=== PATIENT | male | born 1955 | race Caucasian/White ===

== ENCOUNTER 2016-12-14 07:12 | Inpatient (IN) | payer BC ==
[2016-11-24 10:53] VITALS: BMI 35.0
--- NOTE | 2016-11-24 11:30 | PAT Medication Instructions ---
Service Date Nov 24, 2016. Current Home Medication List Acetaminophen Tab (Tylenol), 650 MG PO Q6 PRN for Pain Ibuprofen (Advil), 400-600 MG PO Q6H PRN for Pain Oxycodone/Acetaminophen 5MG/325MG (Percocet 5MG/325MG), 1-2 TABLETS PO Q6H PRN for Pain Medication Instructions For Your Scheduled Surgery - Hold the following medications 10 days prior to surgery per surgeon instructions: Ibuprofen (Advil), 400-600 MG PO Q6H PRN for Pain - Take the following medications the morning of surgery with a sip of water: Oxycodone/Acetaminophen 5MG/325MG (Percocet 5MG/325MG), 1-2 TABLETS PO Q6H PRN for Pain (can take up to four hours prior to surgery if needed) Acetaminophen Tab (Tylenol), 650 MG PO Q6 PRN for Pain - Take the following medications as scheduled the night before surgery: Oxycodone/Acetaminophen 5MG/325MG (Percocet 5MG/325MG), 1-2 TABLETS PO Q6H PRN for Pain Acetaminophen Tab (Tylenol), 650 MG PO Q6 PRN for Pain If you have any questions please call us at [phone] or [phone] ( Caitlin) or [phone]
--- NOTE | 2016-11-24 12:07 | DIAGNOSTIC IMAGING REPORT ---
CHEST PREADMISSION(PA/LAT) CLINICAL HISTORY: Preoperative chest COMPARISON STUDY: No previous studies for comparison. FINDINGS: The cardiac and mediastinal contours are normal. There is no evidence of focal pulmonary consolidation. There is no evidence of failure. No pleural effusions are visualized.[ IMPRESSION: No active disease in the chest. Electronically signed by: Randy Abel M.D. 11/24/2016 12:06 PM Dictated Date/Time: 11/24/2016 12:06 PM
[2016-11-24 12:08] LABS: BASO % 0.5 %; BASO ABS # 0.03 K/uL (0-0.2); COMPLETE YES; EOS % 0.7 %; HEMATOCRIT 42.3 % (42-52); IG% 0.2 %; LYMPH % 20.9 %; LYMPH ABS # 1.25 K/uL (1.2-3.4); MEAN CELL VOLUME 87.9 fL (80-100); MEAN CORPUSCULAR HGB CONC 35.2 g/dl (32-36); MEAN PLATELET VOLUME 12.4 fL (7.4-10.4); NEUT % 71.7 %; PLATELET COUNT 155 K/uL (130-400); RED BLOOD COUNT 4.81 M/uL (4.7-6.1); WHITE BLOOD COUNT 5.99 K/uL (4.8-10.8)
[2016-11-24 12:09] LABS: URINE APPEARANCE CLEAR (CLEAR); URINE BILIRUBIN NEG (NEG); URINE COLOR YELLOW; URINE NITRITE NEG (NEG); URINE PH 6.5 (4.5-7.5); UROBILINOGEN NEG (NEG)
[2016-11-24 12:10] LABS: MANUAL MICROSCOPIC REQUIRED? NO; REVIEW REQ? NO
[2016-11-24 12:21] LABS: PARTIAL THROMBOPLASTIN RATIO 1.2; PROTHROMBIN TIME (PATIENT) 10.8 SECONDS (9.0-12.0)
[2016-11-24 12:55] LABS: BUN/CREATININE RATIO 13.7 (10-20); CALCIUM 9.4 mg/dl (8.5-10.1); POTASSIUM 4.3 mmol/L (3.5-5.1)
[2016-12-14] VITALS (8 sets, daily range): BP systolic 128–192; BP diastolic 72–96; PULSE 75–93; TEMP 36.4–36.7; O2SAT 94–97; Ht 188 cm; Wt 122.9 kg
[~2016-12-14] VITALS: Ht 188 cm; Wt 122.9 kg
[~2016-12-14 07:12] MED LIST: ACET325T96 PO; CEFAZOLIN 3000 MG/65 ML D5W IV SCH; IBUP-1050 PO; LACTATED RINGER'S 1000ML 1,000 ML IV SCH; OXYC-57 PO
[2016-12-14] MEDS ORDERED: ONDANSETRON INJ 2 MG/ML 2 ML VIAL IV PRN ×2 (07:30→11:45)
[2016-12-14] MEDS ORDERED: HYDROmorphone INJ 1 MG/ML SYR IV PRN ×2 (07:30→11:45)
[2016-12-14] MEDS ORDERED: ATROPINE SULFATE 0.1 MG/ML 5ML SYR IV PRN (07:30)
[2016-12-14] MEDS ORDERED: EpHEDrine SULFATE INJ 50 MG/ML AMP IV PRN (07:30)
[2016-12-14] MEDS ORDERED: FENTANYL CITRATE INJ 50 MCG/1 ML 2 ML VIAL ONE (08:45)
[2016-12-14] MEDS ORDERED: HYDROmorphone INJ 2 MG/ML SYR/VIAL ONE (08:45)
[2016-12-14] MEDS ORDERED: MIDAZOLAM HCL 1 MG/ML 2ML VIAL ONE (08:45)
[2016-12-14] MEDS ORDERED: CEFAZOLIN IV 2,000 MG/60 ML D5W IV ONE (09:16)
--- NOTE | 2016-12-14 09:17 | History and Physical ---
History & Physical Date Dec 14, 2016. Chief Complaint LBP and LEFt leg pain/numbness History of Present Illness The patient is a 61 year old male with complaints of above who failed outpatient management including QUINTON's. He is not working due to pain. It follows a radicular pattern. He has subjective sensory loss, worse with standing/walking in left. no R LE symptoms. no incontinecne. MRI shows severe stenosis L3-4, L4-5 and L side L5-S1 HNP. Past Medical/Surgical History nl stress test 2013 hx LBP OA cataract surgery knee surgery Additional History Hepatic Disease: No Endocrine Disorder: No Kidney Disease: No Hypertension: No Heart Disease: No Bleeding Tendencies: No Infectious Diseases: No Allergies Coded Allergies: No Known Allergies (Unverified , 12/14/16) Home Medications Scheduled PRN Acetaminophen Tab (Tylenol), 650 MG PO Q6 PRN for Pain Ibuprofen (Advil), 400-600 MG PO Q6H PRN for Pain Oxycodone/Acetaminophen 5MG/325MG (Percocet 5MG/325MG), 1-2 TABLETS PO Q6H PRN for Pain Physical Examination Skin: warm/dry Eyes: normal inspection Head: normocephalic, atraumatic Neck: supple, trachea midline Respiratory/Chest: lungs clear, no respiratory distress Cardiovascular: regular rate, rhythm Abdomen / GI: non tender Back: normal inspection Extremities: normal inspection, normal range of motion Neurologic/Psych: no motor/sensory deficits (sensory disturbance lateral L leg , pos SLR left), alert, normal reflexes, oriented x 3 Diagnosis lumbar stenosis Plan of Treatment L3-S1 decompression, L sided
[2016-12-14] MEDS ORDERED: THROMBIN FOR SOLN 20000 UNIT KIT ONE (09:23)
[2016-12-14] MEDS ORDERED: BACITRACIN 50000 UNIT VIAL ONE (09:24)
[2016-12-14] MEDS ORDERED: THROMBIN 5000 UNITS KIT ONE (09:24)
[2016-12-14] MEDS ORDERED: BUPIVACAINE/EPINEPHRINE 0.5% MPF 1:200,000 30 ML VIAL ONE (09:24)
[2016-12-14] MEDS ORDERED: ONDANSETRON INJ 2 MG/ML 2 ML VIAL ONE ×2 (10:13→10:51)
[2016-12-14] MEDS ORDERED: DEXAMETHASONE SOD INJ 4 MG/ML VIAL ONE ×2 (10:13→10:51)
[2016-12-14] MEDS ORDERED: EpHEDrine SULFATE INJ 50 MG/ML AMP ONE (10:21)
[2016-12-14] MEDS ORDERED: LIDOCAINE HCL 2% 2 ML VIAL (20MG/ML) ONE (10:50)
[2016-12-14] MEDS ORDERED: ROCURONIUM BROMIDE 10 MG/ML 5 ML VIAL ONE (10:50)
[2016-12-14] MEDS ORDERED: PROPOFOL IV EMULSION 10 MG/ML 20 ML VIAL IV ONE (10:50)
[2016-12-14] MEDS ORDERED: EpHEDrine SULFATE 50MG/5ML SYR ONE (10:51)
[2016-12-14] MEDS ORDERED: CEFAZOLIN SOD 1 GM VIAL ONE (10:51)
[2016-12-14] MEDS ORDERED: LARYING-O-JET KIT (LTA) EXT ONE ×2 (10:59)
[2016-12-14] MEDS ORDERED: GLYCOPYRROLATE INJ 0.2 MG/ML VIAL ONE (11:20)
[2016-12-14] MEDS ORDERED: NEOSTIGMINE METHYLSULFATE 5 MG/5 ML SYR ONE (11:20)
[2016-12-14] MEDS ORDERED: FLOSEAL HEMOSTATIC MATRIX 10ML TOP ONE (11:23)
--- NOTE | 2016-12-14 11:39 | [facility] Post Operative Brief Note ---
Immediate Operative Summary Operative Date Dec 14, 2016. Pre-Operative Diagnosis Lumbar Stenosis Post-Operative Diagnosis Same as preoperative diagnosis. Procedure(s) Performed L3-S1 Left Microdiscectomy Surgeon Research Geologist Surgeon(s) None Estimated Blood Loss 350ml Findings dict Specimens None per surgeon
--- NOTE | 2016-12-14 11:43 | Discharge Instructions ---
Discharge Instructions Date of Service Dec 14, 2016. Admission Reason for Admission: Spinal Stenosis Discharge Discharge Diagnosis / Problem: same Discharge Goals Goal(s): Decrease discomfort Activity Recommendations Activity Limitations: per Instructions/Follow-up section . Instructions / Follow-Up Instructions / Follow-Up ACTIVITY RECOMMENDATIONS: SELF CARE INSTRUCTIONS AFTER A LAMINECTOMY 1. No prolonged sitting (less than 30 minutes for the first 3 weeks after surgery). 2. No bending, lifting more than 5 pounds, or twisting (roll like a log when turning in bed). 3. You may shower 3 days after surgery if no drainage from wound. Thoroughly dry wound. Do not soak in the tub. 4. Please walk as much as you can for exercise. Gradually increase the distance that you walk as your endurance increases. 5. You may drive in 7-10 days if you are comfortable and no longer requiring pain medications. SPECIAL CARE INSTRUCTIONS: VERY IMPORTANT TO READ AND REVIEW A. Your surgical incision has been closed with a cosmetic suture under the skin that will dissolve in about 6 weeks. In 14 days, you can use a pair of clean scissors and cut the suture that is left outside of the skin at the ends of your incision. B. Complications are uncommon, but please contact us if you have any signs or symptoms of: 1. wound infection (fever higher than 102.5 degrees F, redness, separation of wound, drainage, or increasing pain from the incision) 2. blood clots in legs (pain, swelling, redness and warmth in legs) 3. urinary tract infection (fever higher than 102.5 degrees, burning upon urination or increased frequency of urination) 4. nerve problems (inability to walk on your toes or heels, numbness, loss of bowel or bladder control) 5. any other symptoms that concern you. C. Please call the office at if you have any concerns or questions about your operation or recovery. MANAGING PAIN AFTER SPINAL SURGERY 1. Narcotic medication is intended for short-term use and will be provided for surgical pain. Surgical pain usually lasts for a period of 4-6 weeks. Narcotic medication includes Percocet, Vicodin, Darvocet, Tylenol #3 or Lortab. 2. Longer-term pain is more appropriately treated with non-narcotic medication such as Tylenol ES. 3. Muscle spasm is not appropriately treated with narcotics. Muscle relaxers such as Soma, Flexeril or Skelaxin can be used along with Tylenol ES. 4. Remember that we all live with some "aches and pains". This is not unusual or uncommon after an injury or as we get older. 5. We will provide appropriate medication within the normal guidelines of their prescribed use. We will also be very cautious and aware of potential abuse and extended duration of patients' medication needs. 6. Please allow 2-3 days to process refills. Prescriptions will not be mailed but must be picked up at the office. FOLLOW UP VISIT: Keep your scheduled follow-up appointment. Any questions, please call the office at . Current Hospital Diet Patient's current hospital diet: Regular Diet Discharge Diet Recommended Diet: Regular Diet Procedures Procedures Performed: L3-S1 Left Microdiscectomy Pending Studies Studies pending at discharge: no Medical Emergencies . Who to Call and When: Medical Emergencies: If at any time you feel your situation is an emergency, please call 911 immediately. . Non-Emergent Contact Non-Emergency issues call your: Surgeon Past History Medical & Surgical History: (1) Stenosis, spinal, lumbar . "Provider Documentation" section prepared by Marcial Davis. VTE Core Measure Inpt VTE Proph given/why not?: SCD's
[2016-12-14] MEDS ORDERED: ACETAMINOPHEN 325 MG TAB PO PRN (11:45)
[2016-12-14] MEDS ORDERED: LORAZEPAM INJ 1 MG in SYRINGE 0.5 ML IV PRN (11:45)
[2016-12-14] MEDS ORDERED: LORAZEPAM 1 MG TAB PO PRN (11:45)
[2016-12-14] MEDS ORDERED: OXYCODONE/ACETAMINOPHEN 5-325 TAB PO PRN (11:45)
[2016-12-14] MEDS: FENTANYL CITRATE INJ 50 MCG/1 ML 2 ML VIAL IV PRN ×3 (12:04→12:16)
--- NOTE | 2016-12-14 12:48 | Anesthesiology Progress Note ---
Anesthesia Post Op Note Date & Time Dec 14, 2016 at 12:48 Vital Signs Pain Intensity: 3 Vital Signs Past 12 Hours Date Time Temp Pulse Resp B/P Pulse Ox O2 Delivery O2 Flow Rate FiO2 12/14/16 12:40 75 14 154/79 94 Nasal Cannula 2 12/14/16 12:30 36 70 12 137/78 97 Nasal Cannula 2 12/14/16 12:20 65 12 149/79 98 Nasal Cannula 2 12/14/16 12:10 67 14 150/81 98 Mask 10 12/14/16 12:00 62 12 147/77 98 Mask 10 12/14/16 11:52 36.6 80 16 167/81 96 Mask 10 12/14/16 07:50 36.7 89 20 182/96 96 Room Air 192/96 Notes Mental Status: alert / awake / arousable, participated in evaluation Pt Amnestic to Procedure: Yes Nausea / Vomiting: adequately controlled Pain: adequately controlled Airway Patency, RR, SpO2: stable & adequate BP & HR: stable & adequate Hydration State: stable & adequate Anesthetic Complications: no major complications apparent
[2016-12-14] MEDS: SODIUM CHLORIDE 0.9% 1000ML 1,000 ML IV SCH (14:01)
[2016-12-14] MEDS: OXYCODONE/ACETAMINOPHEN 5-325 TAB PO PRN ×2 (14:32→21:14)
--- NOTE | 2016-12-14 14:49 | DIAGNOSTIC IMAGING REPORT ---
LUMBAR SPINE, INTRAOPERATIVE FLUOROSCOPY HISTORY: L3-L4 decompression. L4-S1 microdiscectomy.. FLUOROSCOPY TIME: 6 seconds.. FINDINGS: Intraoperative fluoroscopy was provided for the lumbar spine. 3 fluoroscopic spot images were obtained. There are surgical instruments posterior to the L3-L4, L4-5, and L5-S1 levels. IMPRESSION: Fluoroscopy provided for lumbar surgery. Electronically signed by: Jamaal Trujillo M.D. 12/14/2016 2:48 PM Dictated Date/Time: 12/14/2016 2:47 PM
[2016-12-14] MEDS ORDERED: IV FLUIDS COMPLETED PRN (15:00)
[2016-12-14] MEDS: DEXAMETHASONE INJ 6 MG in SYRINGE 0 ML IV SCH (18:20)
[2016-12-14] MEDS: CEFAZOLIN IV 2,000 MG in DEXTROSE 5% 50ML 50 ML IV SCH (18:22)
[2016-12-14] MEDS ORDERED: NURSING VERBAL MED ORDER ONE (18:30)
[2016-12-15] MEDS: SODIUM CHLORIDE 0.9% 1000ML 1,000 ML IV SCH (01:34)
[2016-12-15] MEDS: CEFAZOLIN IV 2,000 MG in DEXTROSE 5% 50ML 50 ML IV SCH ×2 (01:34→09:48)
[2016-12-15] MEDS: DEXAMETHASONE INJ 6 MG in SYRINGE 0 ML IV SCH ×2 (01:35→09:49)
[2016-12-15 03:35] VITALS: BP 133/70; PULSE 88; TEMP 36.8; O2SAT 94
[2016-12-15] MEDS: OXYCODONE/ACETAMINOPHEN 5-325 TAB PO PRN (04:25)
[2016-12-15 06:58] VITALS: BP 143/71; PULSE 88; TEMP 36.4; O2SAT 92
--- NOTE | 2016-12-15 10:41 | Anesthesiology Progress Note ---
Anesthesia Post Op Note Date & Time Dec 15, 2016 at 10:41 Vital Signs Pain Intensity: 0.0 Vital Signs Past 12 Hours Date Time Temp Pulse Resp B/P Pulse Ox O2 Delivery O2 Flow Rate FiO2 12/15/16 09:16 Room Air 12/15/16 07:45 Room Air 12/15/16 06:58 36.4 88 16 143/71 92 Room Air 12/15/16 03:35 36.8 88 18 133/70 94 Room Air 12/14/16 23:30 36.6 93 18 148/72 95 Room Air 12/14/16 23:30 Room Air Notes Mental Status: alert / awake / arousable, participated in evaluation Pt Amnestic to Procedure: Yes Nausea / Vomiting: adequately controlled Pain: adequately controlled Airway Patency, RR, SpO2: stable & adequate BP & HR: stable & adequate Hydration State: stable & adequate Anesthetic Complications: no major complications apparent
[2016-12-15 12:17] VITALS: BP 154/76; PULSE 80; TEMP 36.3; O2SAT 97
--- NOTE | 2016-12-15 12:42 | Orthopedic Progress Note ---
Orthopedic Progress Note Date of Service Dec 15, 2016. Subjective Post OP Day: 1 Reports: feeling well, pain controlled w PO medications, Denies: SOB, calf pain , chest pain, complaints, light headedness, nausea / vomiting, using OUTREACH REPRESENTATIVE Objective calves soft nontender, N/V intact, dressing C/D/I, A&O x3, hemovac drainage Date Time Temp Pulse Resp B/P Pulse Ox O2 Delivery O2 Flow Rate FiO2 12/15/16 12:17 36.3 80 14 154/76 97 Room Air 12/15/16 09:16 Room Air 12/15/16 07:45 Room Air 12/15/16 06:58 36.4 88 16 143/71 92 Room Air 12/15/16 03:35 36.8 88 18 133/70 94 Room Air 12/14/16 23:30 36.6 93 18 148/72 95 Room Air 12/14/16 23:30 Room Air 12/14/16 18:44 36.4 88 16 136/73 94 Room Air 12/14/16 16:46 Room Air 12/14/16 15:51 36.4 87 18 137/75 97 Nasal Cannula 2.0 12/14/16 14:57 82 16 128/74 97 Nasal Cannula 2.0 12/14/16 13:59 84 16 153/76 95 Nasal Cannula 2.0 12/14/16 13:25 75 16 149/80 94 Nasal Cannula 2.0 12/14/16 13:00 97 Nasal Cannula 12/14/16 13:00 36.4 76 16 146/76 96 Nasal Cannula 2.0 12/14/16 13:00 Nasal Cannula 2.0 Assessment & Plan Assessment: doing well, preop symptoms resolved, desires d/c home Discharge Planning Discharge Planning: home Pain Management: Percocet DVT Prophylaxis: SCDs
[2016-12-15] MEDS ORDERED: OXYC-57 PO (12:57)
[2016-12-15 13:24] VITALS: BP 154/76; PULSE 80; TEMP 36.3; O2SAT 97
--- NOTE | 2016-12-20 14:28 | Discharge Summary ---
Orthopedic Discharge Summary Admission Date/Reason Dec 15, 2016 at 11:47 Spinal Stenosis. Discharge Date/Disposition Dec 15, 2016 Home Diagnosis Principal Diagnosis: same Procedure(s) Performed Left L3-S1 decompressions Medication Reconciliation New Medications: Oxycodone/Acetaminophen 5MG/325MG (Percocet 5MG/325MG) Tab 1-2 TABLETS PO q4-6h PRN for Pain, #60 TAB Continued Medications: Acetaminophen Tab (Tylenol) 325 Mg Tab 650 MG PO Q6 PRN for Pain, TAB Ibuprofen (Advil) 200 Mg Tab 400-600 MG PO Q6H PRN for Pain, TAB Admission Physical Exam As per Admitting History & Physical. Hospital Course He was admitted for an elective L3-S1 decompression and tolerated it well. He was stable postop and ambulated independently. His pain was controlled and he was discharged in stable condition POD1 Discharge Instructions Please refer to the electronic Patient Visit Report (Discharge Instructions) for additional information.
--- NOTE | 2016-12-20 15:56 | OPERATIVE REPORT ---
DATE OF OPERATION: 12/15/2016 PREOPERATIVE DIAGNOSES: 1. L3-4, L4-5 and L5-S1 spinal stenosis -- left sided. 2. Multilevel lumbar spondylosis and disc degeneration. POSTOPERATIVE DIAGNOSIS: Same. PROCEDURES: Left L3-4, L4-5 and L5-S1 decompression. SURGEON: Dr. Davis. DENTAL FRONT OFFICE ASSISTANT: OR staff. ANESTHESIA: General endotracheal anesthesia. COMPLICATIONS: None. ESTIMATED BLOOD LOSS: 350 mL. OPERATION AND FINDINGS: PROCEDURE: After identification of patient and operative level, he was brought to the OR where he underwent induction of general anesthesia. He was then positioned prone on Ryan OR table with all bony prominences well padded. Care was taken to avoid pressure on the periorbital area. Lumbosacral area was sterilely prepped and draped in usual fashion. Antibiotics were administered. Time-out was performed. Level was confirmed. Skin was infiltrated with Marcaine with epinephrine. I then exposed the left L3-4, L4-5 and L5-S1 interlaminar windows, sequentially packed the lower levels and then placed a generator worker retractor at L3-4 and proceeded to decompression at this level. I confirmed level with fluoroscopy prior to completing decompression. I marked the operative levels and then completed decompression at L3-4, by creating a small laminotomy under the caudal edge of L3 with a lena, removing the medial edge of the L3-4 facet with the lena as well as Kerrisons. I then took down the ligamentum flavum and medial facet capsule at L3-4 to decompress the lateral recess. The nerve root was identified, palpated as it passed through the lateral recess along the pedicle of L4 completely decompressed. I then applied FloSeal for hemostasis. I turned my attention to L4-5. The process was repeated at L4-5. I moved the generator worker retractor. I used a lena to remove inferior border of the L4 lamina, medial facet at L4-5 which was hypertrophied and then completed decompression by removal of the ligamentum flavum and the medial facet capsule with Kerrisons at L4-5. I palpated the L5 nerve root was freely traversing the lateral recess and applied FloSeal again. I then turned my attention to L5-S1, placing the generator worker retractor here using a lena to remove the inferior edge of the L5 lamina and then taking down the ligamentum flavum and medial facet capsule with Kerrisons at L5-S1. Subsequently confirmed L5-S1 nerve root was decompressed. There was some disc material contacting which was removed. I then palpated the nerve root was freely clear of all neural compression. I irrigated all levels and applied FloSeal as necessary and bone wax as necessary for hemostasis. I then placed a small drain prior to layered closure. All sponge and needle counts were correct at the end of the case. Please note I did reconfirm level with fluoroscopy prior to final closure. I attest to the content of the Intraoperative Record and any orders documented therein. Any exceptio ns are noted below.
== END 2016-12-15 14:30 | disposition home or self-care (01) | DRG 520 ==
LOC: ENRESERVDT → ENRESERVTM → C.ACU 07:12 → C.3E 11:41 → OBSVTOIN 12-15 11:47
PROVIDERS: ADMIT Orthopaedic Surgery Orthopaedic Surgery of the Spine; ATTEND Orthopaedic Surgery Orthopaedic Surgery of the Spine
PROC: 0SB40ZZ Excision of Lumbosacral Disc, Open Approach (ICD-10-PCS; principal; 2016-12-15)
PROC: 01NB0ZZ Release Lumbar Nerve, Open Approach (ICD-10-PCS; principal; 2016-12-15)
DX: M48.06 Spinal stenosis, lumbar region (principal); M48.07 Spinal stenosis, lumbosacral region; M47.896 Other spondylosis, lumbar region; M51.17 Intervertebral disc disorders with radiculopathy, lumbosacral region; E11.9 Type 2 diabetes mellitus without complications; M19.90 Unspecified osteoarthritis, unspecified site; E66.9 Obesity, unspecified; Z68.35 Body mass index [BMI] 35.0-35.9, adult; Z79.891 Long term (current) use of opiate analgesic